=== PATIENT | male | born 1980 | race Caucasian/White ===

== ENCOUNTER 2023-08-21 02:14 | Emergency (ER) | payer OTHER, SELFPAY ==
[2023-08-21 02:21] VITALS: BP 116/71; PULSE 60; RESP 20; TEMP 36.2; O2SAT 97
[2023-08-21 02:59] LABS: Basophils Absolute Auto 0.1 K/mm3 (0.0-0.1); Basophils Percent Auto 0.7 % (0.2-1.2); Eosinophils Absolute Auto 0.2 K/mm3 (0-0.3); Eosinophils Percent Auto 2.8 % (0-4.4); Hematocrit 43.1 % (42.0-52.0); Hemoglobin 15.1 g/dL (14.0-18.0); Immature Granulocyte Absolute 0.03 K/mm3 (0.00-0.031); Immature Granulocyte Percent A 0.4 % (0-0.5); Lymphocytes Absolute Auto 2.61 K/mm3 (0.9-3.2); Lymphocytes Percent Auto 37.1 % (18.3-44.2); Mean Corpuscular Hemoglobin 29.9 pg (26-34); Mean Corpuscular Volume 85.3 fl (80-100); Mean Platelet Volume 10.7 fl (7.4-10.4); Monocytes Absolute Auto 0.6 K/mm3 (0.1-0.6); Monocytes Percent Auto 8.1 % (2.6-8.5); Neutrophils Absolute Auto 3.6 K/mm3 (1.3-6.7); Neutrophils Percent Auto 50.9 % (45.5-73.1); Platelet Count Result 197 k/mm3 (150-375); Red Blood Count 5.05 M/mm3 (4.6-6.20); Red Cell Distribution Width 13.2 % (11.5-14.5)
[2023-08-21 03:11] LABS: Acetaminophen < 10 ug/mL (10-30); Ethanol < 10 mg/dL (<10); Salicylate < 1.0 mg/dL (2-20)
[2023-08-21 03:12] LABS: Alanine Aminotransferase 75 U/L (6-50); Albumin Level 4.5 g/dL (3.5-5.1); Alkaline Phosphatase 92 U/L (38-126); Anion Gap 15 mmol/L (4-12); Aspartate Amino Transferase 48 U/L (17-59); Bilirubin,Total 0.8 mg/dL (0.2-1.3); Blood Urea Nitrogen 12 mg/dL (9-20); Calcium 8.9 mg/dL (8.4-10.2); Carbon Dioxide 21 mmol/L (22-30); Chloride 103 mmol/L (98-107); Estimated CRCL calculation 109 ml/min; Estimated Glomerular Filt Rate > 60; Glucose 101 mg/dL (65-110); Potassium 3.4 mmol/L (3.4-5.0); Sodium 139 mmol/L (137-145)
--- NOTE | 2023-08-21 03:23 | ED.GENADULT ---
HPI - General Adult General Chief complaint: Psychiatric Symptoms Stated complaint: SI Time Seen by Provider: 08/21/23 02:56 History of Present Illness HPI narrative: [age] old male presenting to the emergency department for evaluation for increased depression and suicidal thoughts. Patient started going through a divorce a few weeks ago and has been drinking heavier. Patient states that he has increased thoughts suicide. Patient states that he does feels used and does not want to be here anymore. Patient did meet with a counselor on Monday. Related Data Home Medications Medication Instructions Recorded Confirmed alprazolam 0.5 mg tablet mg 08/21/23 aripiprazole 5 mg tablet mg 08/21/23 Allergies Allergy/AdvReac Type Severity Reaction Status Date / Time No Known Allergies Allergy Verified 08/21/23 02:29 [facility] Social History Social History Smoking status: Never smoker Substance use type: prescription drug Course Vital Signs Vital signs: Vital Signs Temperature 97.1 F L 08/21/23 02:21 Pulse Rate 60 08/21/23 02:21 Respiratory Rate 20 08/21/23 02:21 Blood Pressure 116/71 08/21/23 02:21 Pulse Oximetry 97 08/21/23 02:21 Oxygen Delivery Room Air 08/21/23 02:21 Temperature 97.9 F 08/21/23 08:44 Pulse Rate 72 08/21/23 08:44 Respiratory Rate 18 08/21/23 08:44 Blood Pressure 138/89 08/21/23 08:44 Pulse Oximetry 100 08/21/23 08:44 Oxygen Delivery Room Air 08/21/23 02:21 Medical Decision Making [facility] Narrative Medical decision making narrative: 42-year-old male presents emergency department for evaluation for increased suicidal thoughts and depression. Patient is afebrile with no leukocytosis and a stable hemoglobin of 15.1. Patient has no significant abnormalities on his CMP. Patient did have an elevated TSH free T4 is within normal limits. UA was negative for infection. Patient's alcohol was negative patient was negative for influenza RSV and for COVID. Patient is medically cleared to be evaluated by crisis. Patient is medically cleared for transportation and in-patient psychiatric treatment as needed Patient was evaluated by the crisis counselor and patient did agree to sign a safety agreement. Vital Signs Vital Signs: Vital Signs Temperature 97.1 F L 08/21/23 02:21 Pulse Rate 60 08/21/23 02:21 Respiratory Rate 20 08/21/23 02:21 Blood Pressure 116/71 08/21/23 02:21 Pulse Oximetry 97 08/21/23 02:21 Oxygen Delivery Room Air 08/21/23 02:21 Temperature 97.9 F 08/21/23 08:44 Pulse Rate 72 08/21/23 08:44 Respiratory Rate 18 08/21/23 08:44 Blood Pressure 138/89 08/21/23 08:44 Pulse Oximetry 100 08/21/23 08:44 Oxygen Delivery Room Air 08/21/23 02:21 Lab Data 08/21/23 02:48 08/21/23 02:48 Labs: Lab Results 08/21/23 08/21/23 Range/Units 02:48 04:11 WBC 7.0 (4.5-10.0) K/mm3 RBC 5.05 (4.6-6.20) M/mm3 Hgb 15.1 (14.0-18.0) g/dL Hct 43.1 (42.0-52.0) % MCV 85.3 (80-100) fl MCH 29.9 (26-34) pg MCHC 35.0 (32-36) g/dl RDW 13.2 (11.5-14.5) % Plt Count 197 (150-375) k/mm3 MPV 10.7 H (7.4-10.4) fl Immature Gran % (Auto) 0.4 (0-0.5) % Neut % (Auto) 50.9 (45.5-73.1) % Lymph % (Auto) 37.1 (18.3-44.2) % [place] % (Auto) 8.1 (2.6-8.5) % Eos % (Auto) 2.8 (0-4.4) % Baso % (Auto) 0.7 (0.2-1.2) % Lymph # (Auto) 2.61 (0.9-3.2) K/mm3 [place] # (Auto) 0.6 (0.1-0.6) K/mm3 Eos # (Auto) 0.2 (0-0.3) K/mm3 Baso # (Auto) 0.1 (0.0-0.1) K/mm3 Abs Immat Gran (auto) 0.03 (0.00-0.031) K/mm3 Absolute Neuts (auto) 3.6 (1.3-6.7) K/mm3 Absolute Nucleated RBC 0.000 (0.0-0.012) K/mm3 Nucleated RBC % 0.0 (0.0-0.2) % Sodium 139 (137-145) mmol/L Potassium 3.4 (3.4-5.0) mmol/L Chloride 103 (98-107) mmol/L Carbon Dioxide 21 L (22-30) mmol/L Anion Gap 15 H (4-12) mmol/L BUN 12 (9-20) mg/dL
[2023-08-21 03:35] LABS: Influenza A QL RT-PCR Negative (Negative); Influenza B QL RT-PCR Negative (Negative); RSV RNA, RT-PCR Negative (Negative); SARS-CoV-2 RNA PCR Negative (Negative)
[2023-08-21 04:36] LABS: Appearance Urine Clear (Clear); Bacteria Urine None Seen /hpf; Bilirubin Urine Negative (Negative); Blood Urine Negative (Negative); Calcium Oxalate Crystals Urine Present /hpf; Color Urine Dark Yellow (Yellow); Glucose Urine UA Negative (Negative); Ketones Urine Negative (Negative); Leukocyte Esterase Ur Negative LEU/UL (Negative); Mucus Urine Present /lpf; Need Manual Microscopic Reviewed; Nitrate Urine Negative (Negative); Non Pathogenic Casts 0-2; Protein Urine Trace mg/dL (Negative); RBC Urine 0-2 /hpf (0-2); Squamous Epithelial Cell Urine None Seen /hpf (Few); WBC Urine 0-5 /hpf (0-3); pH Urine 5.5 (5.0-9.0)
[2023-08-21 04:38] LABS: Free T4 Free Thyroxine Reflex 1.01 ng/dL (0.78-2.19)
[2023-08-21 04:40] LABS: Amphetamine Screen Urine Negative (Negative); Barbiturate Screen Urine Negative (Negative); Benzodiazepines Screen Urine Positive (Negative); Cannabinoid Screen Urine Negative (Negative); Cocaine Screen Urine Negative (Negative); Methadone Screen Urine Negative (Negative); Opiate Screen Urine Negative (Negative); Phencyclidine Screen Urine Negative (Negative)
[2023-08-21 04:42] LABS: Add Urine Microscopic? YES
[2023-08-21 05:35] LABS: Total Triiodothyronine (T3) 1.69 NG/ML (0.97-1.69)
--- NOTE | 2023-08-21 07:58 | PC.NURSE ---
workers' compensation claims examiner reports POC safety contract. Per workers' compensation claims examiner states pts neighbor has pts guns, willing to keep pt medication at his home & administer to pt. Dr. Adams informed.
[2023-08-21 08:44] VITALS: BP 138/89; PULSE 72; RESP 18; TEMP 36.6; O2SAT 100
== END 2023-08-21 08:48 | disposition home or self-care (01) ==
PROVIDERS: Emergency Provider Emergency Medicine; PCP Family Medicine
DX: F32.A Depression, unspecified (principal); Z11.52 Encounter for screening for COVID-19
CPT/HCPCS: 36415; 80053; 80307; 81001; 84439; 84443; 84480; 85025; 87637; 99284

== ENCOUNTER 2023-12-18 07:30 | Outpatient (CLI) | payer OTHER, SELFPAY ==
--- NOTE | ~2023-12-18 | NM_ITS ---
EXAMINATION: NM hepatobiliary w pharm DATE: 12/18/2023 09:41 INDICATION: Obstruction of bile duct. Cholelithiasis. COMPARISON: CT abdomen and pelvis 05/23/2005 TECHNIQUE: 4.9 mCi Tc-99m mebrofenin (Choletec) was administered intravenously. Scintigraphic images of the abdomen were obtained for one hour. Then, 2 mcg sincalide (Kinevac) IV was administered, and imaging was continued for 30 minutes. FINDINGS: There is normal clearance of radiotracer from the blood pool. There is homogeneous tracer u ptake by the liver. Activity progresses to the bowel and gallbladder. Gallbladder ejection fraction (GBEF) was 91%. Note that most patients with gallbladder dysfunction have GBEF < 35%, which overlaps with the broad normal range of 10-90%. IMPRESSION: 1. Normal hepatobiliary scintigraphy. Reviewed, dictated and finalized at location A. M [employer]
== END 2023-12-18 07:31 | disposition home or self-care (01) ==
DX: K83.1 Obstruction of bile duct (principal)
CPT/HCPCS: 78227; A9537; J2805

== ENCOUNTER 2024-01-12 06:35 | Outpatient (CLI) | payer OTHER, SELFPAY ==
--- NOTE | ~2024-01-12 | CT_ITS ---
CT of the Abdomen and Pelvis: Indication: Abdominal pain Technique: 2.5 mm axial scans were obtained through the abdomen and pelvis following intravenous adm inistration of 100 cc of Omnipaque 350. Dose reduction technique was used on this scan by utilizing a utomated exposure control and iterative reconstruction technique. The dose-length product (DLP) was 5 63.10 mGy-cm. Findings: Scans through the lung bases are unremarkable. The liver, spleen, pancreas, gallbladder, adrenals and kidneys are within normal limits. No evidence of aortic aneurysm. No lymphadenopathy. No bowel obstruction or bowel wall thickening. There is no evidence to suggest acute appendicitis. Images through the pelvis were performed. Urinary bladder unremarkable. No pelvic mass seen. No ascit es. Bilateral L5 pars interarticularis defects are present, with minimal grade 1 anterolisthesis of L 5 over S1. Impression: No acute abnormality. Bilateral L5 pars interarticularis defects, with minimal grade 1 anterolisthesis of L5 over S1. Reviewed, dictated and finalized at location . ET FILLER Impression: No acute abnormality. Bilateral L5 pars interarticularis defects, with minimal grade 1 anterolisthesi s of L5 over S1.
[2024-01-12 07:14] LABS: Estimated Glomerular Filt Rate > 60
== END 2024-01-12 06:36 | disposition home or self-care (01) ==
DX: M43.17 Spondylolisthesis, lumbosacral region (principal); R10.9 Unspecified abdominal pain
CPT/HCPCS: 74177; Q9967